=== PATIENT | female | born 1945 | race Caucasian/White ===

== ENCOUNTER → 2019-01-03 | Outpatient (CLI) | payer OTHER ==
[~2019-01-03] MED LIST: ADULT LOW DOSE81 MG PO; ALEVE220 M1 PO; CARDIZEM CD180 MG PO; CITRACAL + D C1 EACH PO; GLUCOSAMINE &1 EAC1 PO; MINOCIN50 MG PO; MINOCYCLINE 5050 M1 PO; NORCO 5-325 TA1 EACH PO; OMEGA-31000 M1 PO; REGLAN 10 MG TA10 M1 PO; VITAMINC500 PO; XARELTO20 MG PO; [UNRECOGNIZED DRUG - OTHER]
== END ==
LOC: ULTRA 10:00
DX: M79.89 Other specified soft tissue disorders (principal); M79.662 Pain in left lower leg; Z86.718 Personal history of other venous thrombosis and embolism

== ENCOUNTER → 2019-05-02 | Outpatient (CLI) | payer OTHER | LOC: ULTRA 09:33 | DX: R60.0 Localized edema (principal) ==

== ENCOUNTER 2019-08-25 01:13 | Emergency (ER) | payer OTHER ==
[~2019-08-25] VITALS: Ht 160 cm; Wt 103.0 kg
[2019-08-25] MEDS ORDERED: LEVOTHYROXINE50 MCG PO (01:44)
[2019-08-25] MEDS ORDERED: TOPROL XL25 MG PO (01:44)
[2019-08-25 01:54] LABS: URINE BILIRUBIN NEGATIVE (Negative); URINE BLOOD TRACE (Negative); URINE CLARITY CLEAR; URINE COLOR YELLOW; URINE GLUCOSE-RANDOM* NEGATIVE (Negative); URINE KETONES TRACE (Negative); URINE NITRITE-REFLEX NEGATIVE (Negative); URINE PROTEIN (DIPSTICK) NEGATIVE (Negative); URINE UROBILINOGEN 0.2 E.U./dl (0.2-1.0)
[2019-08-25 01:56] LABS: URINE LEUKOCYTES-REFLEX 1+ (Negative)
[2019-08-25 02:00] LABS: CASTS None Seen /LPF (None Seen); MUCUS None Seen strn/LPF (None Seen); SQUAMOUS 0-3 Few /LPF (0-3)
[2019-08-25 02:01] LABS: BACTERIA-REFLEX 1-9 Few /HPF (None Seen); CRYSTALS None Seen /LPF (None Seen); URINE RBC None Seen /HPF (0-2); URINE WBC-REFLEX 0-5 Rare /HPF (0-5)
[2019-08-25 02:33] LABS: HEMATOCRIT 45.1 % (37.0-47.0); HEMOGLOBIN 14.8 gm/dL (12.0-15.0); MCH 30.3 pg (26.0-34.0); MCHC 32.9 g/dL (28.0-37.0); RBC 4.9 mil/uL (4.20-5.00)
[2019-08-25 02:42] LABS: ANION GAP 14 mmol/L (7-16); BUN 16 mg/dL (7-18); CALCIUM 9.6 mg/dL (8.5-10.1); CHLORIDE 99 mmol/L (98-107); CO2 22 mmol/L (21-32); CREATININE 0.8 mg/dL (0.6-1.0); GLUCOSE 112 mg/dL (74-106); POTASSIUM 3.7 mmol/L (3.5-5.1); SODIUM 135 mmol/L (136-145)
[2019-08-25 02:51] LABS: MAGNESIUM 1.9 mg/dL (1.8-2.4); TROPONIN-I <0.06 ng/mL (<0.06)
[2019-08-25] MEDS ORDERED: ELIQUIS5 MG PO (03:10)
[2019-08-25 04:19] VITALS: BP 112/64
--- NOTE | 2019-08-27 09:38 | EKG ---
[facility] [place] [address] ELECTROCARDIOGRAM REPORT Name: APRIL GILMAN Room #: DEP Alejandro#: [id number] Admission: 08/25/19 Attend Phys: Discharge: 08/25/19 Date of : 41 Report #: [id number] THIS REPORT FOR: cc: Fadi Solis MD, Neal A. MD Lundgren,Justin Zamora MD [facility] ~ THIS REPORT FOR: //name// [facility] ED Test Date: 2019-08-25 Test Time: 01:21:07 Pat Name: APRIL GILMAN Department: Room: Gender: F Airline Security Representative: [facility] : 1945 Requested By: Lucía Colvin Order Number: [id number] MD: Justin Masters Measurements Intervals [place] Rate: 141 P: [place]: QRS: 21 QRSD: 84 T: -13 QT: 307 QTc: 470 Interpretive Statements Atrial fibrillation Repolarization abnormality, prob rate related Baseline wander in lead(s) II,III,aVR,aVF,V1,V3,V4 Compared to ECG 03/07/2015 01:31:02 Atrial fibrillation has replaced sinus rhythm Electronically Signed On 08-27-2019 9:36:44 CDT by Justin Masters [email or web address] <ELECTRONICALLY SIGNED> By: Justin Masters MD, FACC 08/27/19 0936 0 0 Justin Masters MD, FAC /EPI
--- NOTE | 2019-08-27 09:38 | EKG ---
[facility] [place] [address] ELECTROCARDIOGRAM REPORT Name: APRIL GILMAN [id number] Admission: 08/25/19 Attend Phys: Discharge: 08/25/19 Date of : 41 Report #: [id number] THIS REPORT FOR: cc: Fadi Solis MD, Neal A. MD Lundgren,Justin Zamora MD [facility] THIS REPORT FOR: //name// [facility] ED Test Date: 2019-08-25 Test Time: 03:16:47 Pat Name: APRIL GILMAN Department: Room: Gender: [employer] Ordnance[employer]: : 1945 Requested By: Lucía Colvin Order Number: [id number] MD: Justin Masters Measurements Intervals [place] Rate: 86 P: 44 MS: 152 QRS: 3 QRSD: 90 T: -1 QT: 362 QTc: 433 Interpretive Statements Sinus rhythm Normal Compared to ECG 03/07/2015 01:31:02 Sinus rhythm has replaced atrial fibrillation Electronically Signed On 08-27-2019 9:37:29 CDT by Justin Masters [email or web address] <ELECTRONICALLY SIGNED> By: Justin Masters MD, [facility] 08/27/19 0937 0316 Justin Masters MD, [facility] /EPI
== END 2019-08-25 04:20 | disposition home or self-care (01) ==
LOC: ER 01:13
PROVIDERS: Emergency Medicine Emergency Medical Services
DX: I48.20 Chronic atrial fibrillation, unspecified (principal); Z79.899 Other long term (current) drug therapy; Z88.2 Allergy status to sulfonamides; Z88.8 Allergy status to other drugs, medicaments and biological substances

== ENCOUNTER → 2020-09-17 | Outpatient (CLI) | payer OTHER ==
[~2020-09-17] MED LIST changes: +ELIQUIS5 MG PO; +LEVOTHYROXINE50 MCG PO; +TOPROL XL25 MG PO
== END ==
LOC: HYPER 13:53
PROVIDERS: ATTEND Emergency Medicine
DX: S81.002A Unspecified open wound, left knee, initial encounter (principal); S80.02XA Contusion of left knee, initial encounter; L97.822 Non-pressure chronic ulcer of other part of left lower leg with fat layer exposed; L03.116 Cellulitis of left lower limb; L02.416 Cutaneous abscess of left lower limb; R60.0 Localized edema; E07.89 Other specified disorders of thyroid; E66.9 Obesity, unspecified; Z68.1 Body mass index [BMI] 19.9 or less, adult; Z79.82 Long term (current) use of aspirin; W19.XXXA Unspecified fall, initial encounter; Y93.89 Activity, other specified; Y92.89 Other specified places as the place of occurrence of the external cause; Y99.8 Other external cause status

== ENCOUNTER → 2020-09-19 | Outpatient (CLI) | payer OTHER | LOC: HYPER 08:14 | PROVIDERS: ATTEND Emergency Medicine Emergency Medical Services | DX: S81.002D Unspecified open wound, left knee, subsequent encounter (principal); L97.822 Non-pressure chronic ulcer of other part of left lower leg with fat layer exposed; L03.116 Cellulitis of left lower limb; L02.416 Cutaneous abscess of left lower limb; R60.0 Localized edema; Z79.82 Long term (current) use of aspirin; Z79.899 Other long term (current) drug therapy; X58.XXXD Exposure to other specified factors, subsequent encounter ==

== ENCOUNTER → 2020-09-24 | Outpatient (CLI) | payer OTHER | LOC: HYPER 14:28 | PROVIDERS: ATTEND Emergency Medicine | DX: S81.002D Unspecified open wound, left knee, subsequent encounter (principal); L97.822 Non-pressure chronic ulcer of other part of left lower leg with fat layer exposed; S80.02XD Contusion of left knee, subsequent encounter; L03.116 Cellulitis of left lower limb; L02.416 Cutaneous abscess of left lower limb; E66.9 Obesity, unspecified; Z68.39 Body mass index [BMI] 39.0-39.9, adult; Z91.81 History of falling; Z79.82 Long term (current) use of aspirin; Z79.899 Other long term (current) drug therapy; X58.XXXD Exposure to other specified factors, subsequent encounter ==

== ENCOUNTER → 2020-09-25 | Outpatient (CLI) | payer OTHER | LOC: SJCVCIMAG 09:18 | PROVIDERS: ATTEND Emergency Medicine | DX: I73.9 Peripheral vascular disease, unspecified (principal); M79.604 Pain in right leg; M79.605 Pain in left leg; L97.929 Non-pressure chronic ulcer of unspecified part of left lower leg with unspecified severity; Z79.899 Other long term (current) drug therapy ==

== ENCOUNTER → 2020-10-01 | Outpatient (CLI) | payer OTHER | LOC: HYPER 13:11 | PROVIDERS: ATTEND Emergency Medicine | DX: S81.002D Unspecified open wound, left knee, subsequent encounter (principal); L97.822 Non-pressure chronic ulcer of other part of left lower leg with fat layer exposed; S80.02XD Contusion of left knee, subsequent encounter; L03.116 Cellulitis of left lower limb; L02.416 Cutaneous abscess of left lower limb; L84 Corns and callosities; R60.0 Localized edema; E66.9 Obesity, unspecified; Z68.39 Body mass index [BMI] 39.0-39.9, adult; Z91.81 History of falling; Z79.82 Long term (current) use of aspirin; Z79.899 Other long term (current) drug therapy; X58.XXXD Exposure to other specified factors, subsequent encounter ==

== ENCOUNTER → 2020-10-21 | Outpatient (CLI) | payer OTHER | LOC: HYPER 09:10 | PROVIDERS: ATTEND Emergency Medicine | DX: S81.002D Unspecified open wound, left knee, subsequent encounter (principal); L97.822 Non-pressure chronic ulcer of other part of left lower leg with fat layer exposed; S80.02XD Contusion of left knee, subsequent encounter; L03.116 Cellulitis of left lower limb; L02.416 Cutaneous abscess of left lower limb; L84 Corns and callosities; R60.0 Localized edema; E07.89 Other specified disorders of thyroid; E66.9 Obesity, unspecified; Z68.39 Body mass index [BMI] 39.0-39.9, adult; Z79.82 Long term (current) use of aspirin; X58.XXXD Exposure to other specified factors, subsequent encounter ==

== ENCOUNTER → 2020-10-29 | Outpatient (CLI) | payer OTHER | LOC: HYPER 08:36 | PROVIDERS: ATTEND Emergency Medicine | DX: L97.822 Non-pressure chronic ulcer of other part of left lower leg with fat layer exposed (principal); S80.02XD Contusion of left knee, subsequent encounter; L03.116 Cellulitis of left lower limb; L02.416 Cutaneous abscess of left lower limb; L84 Corns and callosities; R60.0 Localized edema; E07.89 Other specified disorders of thyroid; E66.9 Obesity, unspecified; Z68.39 Body mass index [BMI] 39.0-39.9, adult; Z79.82 Long term (current) use of aspirin; X58.XXXD Exposure to other specified factors, subsequent encounter ==

== ENCOUNTER → 2020-11-04 | Outpatient (CLI) | payer OTHER | LOC: HYPER 09:58 | PROVIDERS: ATTEND Specialist | DX: L97.822 Non-pressure chronic ulcer of other part of left lower leg with fat layer exposed (principal); S80.02XD Contusion of left knee, subsequent encounter; L03.116 Cellulitis of left lower limb; L02.416 Cutaneous abscess of left lower limb; L84 Corns and callosities; R60.0 Localized edema; E07.89 Other specified disorders of thyroid; E66.9 Obesity, unspecified; Z68.39 Body mass index [BMI] 39.0-39.9, adult; X58.XXXD Exposure to other specified factors, subsequent encounter ==

== ENCOUNTER → 2020-11-12 | Outpatient (CLI) | payer OTHER | LOC: HYPER 08:58 | PROVIDERS: ATTEND Emergency Medicine | DX: S81.002D Unspecified open wound, left knee, subsequent encounter (principal); L97.822 Non-pressure chronic ulcer of other part of left lower leg with fat layer exposed; L03.116 Cellulitis of left lower limb; L02.416 Cutaneous abscess of left lower limb; S80.02XD Contusion of left knee, subsequent encounter; R60.0 Localized edema; E66.9 Obesity, unspecified; Z68.39 Body mass index [BMI] 39.0-39.9, adult; Z91.81 History of falling; Z79.82 Long term (current) use of aspirin; Z79.899 Other long term (current) drug therapy; W19.XXXD Unspecified fall, subsequent encounter ==

== ENCOUNTER → 2020-11-26 | Outpatient (CLI) | payer OTHER | LOC: HYPER 08:50 | PROVIDERS: ATTEND Emergency Medicine | DX: S81.002D Unspecified open wound, left knee, subsequent encounter (principal); S80.02XD Contusion of left knee, subsequent encounter; L97.822 Non-pressure chronic ulcer of other part of left lower leg with fat layer exposed; L03.116 Cellulitis of left lower limb; L02.416 Cutaneous abscess of left lower limb; L84 Corns and callosities; R60.0 Localized edema; E66.9 Obesity, unspecified; E07.89 Other specified disorders of thyroid; Z68.39 Body mass index [BMI] 39.0-39.9, adult; Z79.82 Long term (current) use of aspirin; W19.XXXD Unspecified fall, subsequent encounter ==

== ENCOUNTER → 2020-12-03 | Outpatient (CLI) | payer OTHER | LOC: HYPER 09:18 | PROVIDERS: ATTEND Emergency Medicine | DX: S81.002D Unspecified open wound, left knee, subsequent encounter (principal); S80.02XD Contusion of left knee, subsequent encounter; L97.822 Non-pressure chronic ulcer of other part of left lower leg with fat layer exposed; L03.116 Cellulitis of left lower limb; L02.416 Cutaneous abscess of left lower limb; L84 Corns and callosities; R60.0 Localized edema; E66.9 Obesity, unspecified; E07.89 Other specified disorders of thyroid; Z68.39 Body mass index [BMI] 39.0-39.9, adult; Z79.82 Long term (current) use of aspirin; W19.XXXD Unspecified fall, subsequent encounter ==

== ENCOUNTER → 2020-12-10 | Outpatient (CLI) | payer OTHER | LOC: HYPER 08:42 | PROVIDERS: ATTEND Emergency Medicine | DX: L97.822 Non-pressure chronic ulcer of other part of left lower leg with fat layer exposed (principal); S81.002D Unspecified open wound, left knee, subsequent encounter; S80.02XD Contusion of left knee, subsequent encounter; L02.416 Cutaneous abscess of left lower limb; R60.0 Localized edema; R21 Rash and other nonspecific skin eruption; I51.9 Heart disease, unspecified; E66.9 Obesity, unspecified; Z68.39 Body mass index [BMI] 39.0-39.9, adult; Z91.81 History of falling; Z79.82 Long term (current) use of aspirin; Z79.899 Other long term (current) drug therapy; X58.XXXD Exposure to other specified factors, subsequent encounter ==

== ENCOUNTER → 2020-12-17 | Outpatient (CLI) | payer OTHER | LOC: HYPER 08:25 | PROVIDERS: ATTEND Emergency Medicine | DX: L97.822 Non-pressure chronic ulcer of other part of left lower leg with fat layer exposed (principal); S81.002D Unspecified open wound, left knee, subsequent encounter; S80.02XD Contusion of left knee, subsequent encounter; L02.416 Cutaneous abscess of left lower limb; R60.0 Localized edema; R21 Rash and other nonspecific skin eruption; I51.9 Heart disease, unspecified; E66.9 Obesity, unspecified; Z68.39 Body mass index [BMI] 39.0-39.9, adult; Z79.82 Long term (current) use of aspirin; X58.XXXD Exposure to other specified factors, subsequent encounter; L84 Corns and callosities ==

== ENCOUNTER → 2020-12-24 | Outpatient (CLI) | payer OTHER | LOC: HYPER 08:29 | PROVIDERS: ATTEND Emergency Medicine | DX: L97.822 Non-pressure chronic ulcer of other part of left lower leg with fat layer exposed (principal); S81.002D Unspecified open wound, left knee, subsequent encounter; S80.02XD Contusion of left knee, subsequent encounter; L02.416 Cutaneous abscess of left lower limb; L84 Corns and callosities; R60.0 Localized edema; R21 Rash and other nonspecific skin eruption; I51.9 Heart disease, unspecified; E07.89 Other specified disorders of thyroid; E66.9 Obesity, unspecified; Z68.39 Body mass index [BMI] 39.0-39.9, adult; Z79.82 Long term (current) use of aspirin; X58.XXXD Exposure to other specified factors, subsequent encounter ==